=== PATIENT | female | born 1970 | race African-American/Black ===

== ENCOUNTER 2021-08-11 23:55 | Emergency (ER) | payer SELFPAY ==
[~2021-08-11] VITALS: Ht 167.6 cm; Wt 60.0 kg
[2021-08-11 23:57] VITALS: BP 129/91
[2021-08-12] MEDS ORDERED: NALO4SPR BOTHNSTRLS (01:03)
== END 2021-08-12 01:20 | disposition home or self-care (01) ==
LOC: ER 23:55
DX: T50.901A Poisoning by unspecified drugs, medicaments and biological substances, accidental (unintentional), initial encounter (principal); R41.82 Altered mental status, unspecified; Y92.488 Other paved roadways as the place of occurrence of the external cause
CPT/HCPCS: 99283